=== PATIENT | male | born 1960 | race Caucasian/White ===

== ENCOUNTER 2021-06-22 21:58 | Inpatient (IN) | payer OTHER ==
[~2021-06-22] VITALS: Ht 170.2 cm; Wt 94.3 kg
[2021-06-22 22:30] LABS: HEMOGLOBIN 10.5 gm/dl (14.0-17.5); RED BLOOD COUNT 3.25 M/UL (4.20-5.50); WHITE BLOOD COUNT 6.8 K/UL (4.5-11.0)
[2021-06-23] MEDS ORDERED: FUROSEMIDE20 MG PO (05:01)
[2021-06-23] MEDS ORDERED: DOCUSATE SODIU100 MG PO (05:02)
[2021-06-23] MEDS ORDERED: HYDROXYZINE PAM25 MG PO (05:02)
[2021-06-23] MEDS ORDERED: AMLODIPINE BESY10 MG PO (05:02)
[2021-06-23] MEDS ORDERED: VIAGRA100 MG PO (05:02)
[2021-06-23] MEDS ORDERED: LORATADINE10 MG PO (05:03)
[2021-06-23] MEDS ORDERED: PROTONIX 40 MG40 M1 PO (05:03)
[2021-06-23] MEDS ORDERED: LEVOTHYROXINE25 MCG PO (05:03)
[2021-06-23] MEDS ORDERED: SIMVASTATIN10 MG PO (05:03)
[2021-06-23] MEDS ORDERED: SERTRALINE HCL25 MG PO (05:03)
[2021-06-23] MEDS ORDERED: VITAMIN D21250 MCG PO (05:04)
[2021-06-24 06:42] LABS: HEMOGLOBIN 10.7 gm/dl (14.0-17.5); RED BLOOD COUNT 3.34 M/UL (4.20-5.50); WHITE BLOOD COUNT 7.6 K/UL (4.5-11.0)
[2021-06-25 08:11] LABS: CREATININE, URINE 71.4 mg/dL (Not Estab.)
[2021-06-25 10:11] LABS: HBSAG SCREEN Negative (Negative); HEP A AB, IGM Negative (Negative); HEP B CORE AB, IGM Negative (Negative); HEP C VIRUS AB <0.1 (0.0-0.9)
[2021-06-25] MEDS ORDERED: CONSTULOSE10 GM/15 M PO (16:32)
[2021-06-26 08:12] LABS: ANTISTREPTOLYSIN O AB 160.6 IU/mL (0.0-200.0); COMPLEMENT C3, SERUM 161 mg/dL (82-167); COMPLEMENT C4, SERUM 28 mg/dL (12-38)
[2021-06-27 11:08] LABS: A/G RATIO 0.8 (0.7-1.7); ALBUMIN 2.7 g/dL (2.9-4.4); ALPHA-1-GLOBULIN 0.3 g/dL (0.0-0.4); ALPHA-2-GLOBULIN 0.8 g/dL (0.4-1.0); BETA GLOBULIN 1.1 g/dL (0.7-1.3); GAMMA GLOBULIN 1.4 g/dL (0.4-1.8); GLOBULIN, TOTAL 3.5 g/dL (2.2-3.9); IMMUNOGLOBULIN A, QN, SERUM 685 mg/dL (90-386); IMMUNOGLOBULIN G, QN, SERUM 1090 mg/dL (603-1613); IMMUNOGLOBULIN M, QN, SERUM 58 mg/dL (20-172); M-SPIKE Not Observed g/dL (Not Observed); PROTEIN, TOTAL, SERUM 6.2 g/dL (6.0-8.5)
[2021-06-27 13:09] LABS: ANTI-DSDNA ANTIBODIES <1 IU/mL (0-9)
[2021-06-27 16:09] LABS: ANTIGLOMERULAR BM AB 5 units (0-20); ANTIMYELOPEROXIDASE (MPO) ABS <9.0 U/mL (0.0-9.0); ANTIPROTEINASE 3 (PR-3) ABS <3.5 U/mL (0.0-3.5); ATYPICAL PANCA <1:20 titer (Neg:<1:20); CYTOPLASMIC (C-ANCA) <1:20 titer (Neg:<1:20); PERINUCLEAR (P-ANCA) <1:20 titer (Neg:<1:20)
== END 2021-06-25 17:30 | disposition home or self-care (01) | DRG 683 ==
LOC: ER1 21:58 → MED SURG 4 06-23 03:00 → CDU 06-23 03:00 → MED SURG 4 06-23 04:12
PROVIDERS: Internal Medicine; Internal Medicine Nephrology; Physician Assistant; ADMIT Internal Medicine
DX: N17.9 Acute kidney failure, unspecified (principal); J90 Pleural effusion, not elsewhere classified; R18.8 Other ascites; K76.6 Portal hypertension; Z20.822 Contact with and (suspected) exposure to COVID-19; E87.6 Hypokalemia; E83.42 Hypomagnesemia; I12.9 Hypertensive chronic kidney disease with stage 1 through stage 4 chronic kidney disease, or unspecified chronic kidney disease; E88.09 Other disorders of plasma-protein metabolism, not elsewhere classified; E87.70 Fluid overload, unspecified; K44.9 Diaphragmatic hernia without obstruction or gangrene; E03.9 Hypothyroidism, unspecified; N18.4 Chronic kidney disease, stage 4 (severe); K75.81 Nonalcoholic steatohepatitis (NASH); K74.60 Unspecified cirrhosis of liver; Z85.038 Personal history of other malignant neoplasm of large intestine; Z79.899 Other long term (current) drug therapy
CPT/HCPCS: ECHO; 36415; 71045; 80048; 80053; 80074; 81001; 82043; 82436; 82550; 82553; 82570; 82728; 82784; 83520; 83540; 83550; 83690; 83735; 83880; 83883; 84132; 84133; 84155; 84156; 84165; 84300; 84484; 84550; 85025; 85610; 85730; 86038; 86060; 86160; 86225; 86256; 86334; 87086; 89050; 93306; 99285; J1644; J1940; J3475; J3480; P9047; Q0177; U0002

== ENCOUNTER → 2021-07-04 | Outpatient (CLI) | payer OTHER ==
[~2021-07-04] MED LIST: AMLODIPINE BESY10 MG PO; CONSTULOSE10 GM/15 M PO; DOCUSATE SODIU100 MG PO; FUROSEMIDE20 MG PO; HYDROXYZINE PAM25 MG PO; LEVOTHYROXINE25 MCG PO; LORATADINE10 MG PO; PROTONIX 40 MG40 M1 PO; SERTRALINE HCL25 MG PO; SIMVASTATIN10 MG PO; VIAGRA100 MG PO; VITAMIN D21250 MCG PO
[2021-07-04 12:58] LABS: HEMOGLOBIN 11.2 gm/dl (14.0-17.5); RED BLOOD COUNT 3.54 M/UL (4.20-5.50); WHITE BLOOD COUNT 6.7 K/UL (4.5-11.0)
== END ==
LOC: LAB 11:45
PROVIDERS: Internal Medicine Nephrology
DX: N01.9 Rapidly progressive nephritic syndrome with unspecified morphologic changes (principal)
CPT/HCPCS: 36415; 80053; 85025; 85610; 85730

== ENCOUNTER → 2021-07-05 | Outpatient (CLI) | payer OTHER ==
[2021-07-05 08:18] LABS: HEMOGLOBIN 11.5 gm/dl (14.0-17.5); RED BLOOD COUNT 3.59 M/UL (4.20-5.50); WHITE BLOOD COUNT 7.2 K/UL (4.5-11.0)
== END ==
LOC: OPSV 06:27 → CT 06:27
PROVIDERS: Internal Medicine Nephrology
DX: N04.9 Nephrotic syndrome with unspecified morphologic changes (principal); N02.8 Recurrent and persistent hematuria with other morphologic changes
CPT/HCPCS: 36430; 77012; 80053; 85027; 85610; 85730; 86850; 86900; 86901; 86927; 88305; 88313; 88346; 88348; P9017

== ENCOUNTER → 2021-07-28 | Outpatient (CLI) | payer OTHER ==
[2021-07-28 13:37] LABS: HEMOGLOBIN 7.7 gm/dl (14.0-17.5); RED BLOOD COUNT 2.42 M/UL (4.20-5.50)
[2021-07-29 08:13] LABS: CREATININE, URINE 101.1 mg/dL (Not Estab.)
== END ==
LOC: LAB 12:06
PROVIDERS: Internal Medicine Nephrology
DX: N02.8 Recurrent and persistent hematuria with other morphologic changes (principal)
CPT/HCPCS: 36415; 80053; 81001; 82043; 82570; 84156; 85027